=== PATIENT | female | born 1995 | race African-American/Black ===

== ENCOUNTER 2024-01-14 23:24 | Emergency (ER) | payer MEDICAID ==
[~2024-01-14] VITALS: Ht 172.7 cm; Wt 113.0 kg
[2024-01-15] MEDS: HALOPERIDOL LACTATE 5MG/ML VIAL IM ONE ×2 (00:55)
[2024-01-15] MEDS: MIDAZOLAM HCL 2 MG/2 ML VIAL IV ONE (01:36)
[2024-01-15 01:37] LABS: BASOPHILS % 0.7 % (0.0-2.0); EOSINOPHILS % 0.2 % (0.0-5.0); HEMATOCRIT. 39.2 % (36.0-48.0); HEMOGLOBIN. 12.9 g/dL (12.0-16.0); LYMPHOCYTES % 12.7 % (20.0-50.0); MEAN CORPUSCULAR HEMOGLOBIN 27.7 pg (28.0-32.0); MEAN CORPUSCULAR VOLUME 83.7 fL (81.0-99.0); MEAN PLATELET VOLUME 7.7 fl (7.4-10.4); NEUTROPHILS % 81.4 % (40.0-76.0); PLATELET 332 x1000/uL (130-400); RED BLOOD CELL COUNT 4.68 mill/uL (4.2-5.4); RED CELL DISTRIBUTION WIDTH 15.5 % (11.6-14.6); WHITE BLOOD COUNT 11.7 x1000/uL (4.5-11.0)
[2024-01-15 02:00] LABS: ALANINE AMINOTRANSFERASE 18 IU/L (10-49); ALBUMIN 5.2 g/dL (3.2-4.8); ASPARTATE AMINOTRANSFERASE 41 IU/L (<34); BILIRUBIN TOTAL 1.1 mg/dL (0.1-1.0); CALCIUM 9.4 mg/dL (8.7-10.4); CARBON DIOXIDE 17 mEq/L (21-32); CHLORIDE 104 mEq/L (98-107); CREATININE 0.9 mg/dL (0.6-1.0); ETHANOL BLOOD 85 mg/dL (<10); GLUCOSE 81 mg/dL (70-105); POTASSIUM 5.1 mEq/L (3.5-5.1); PROTEIN TOTAL 8.7 g/dL (6.0-8.3); SODIUM 137 mEq/L (136-145); UREA NITROGEN BLOOD 6 mg/dL (9-23)
[2024-01-15 02:24] LABS: HCG SCREEN NEGATIVE
[2024-01-15 04:00] VITALS: O2SAT 100
[2024-01-15] MEDS: SODIUM CHLORIDE 0.9% 500 ML IV NR (05:43)
[2024-01-15 06:48] LABS: CALCIUM 9.2 mg/dL (8.7-10.4); CARBON DIOXIDE 23 mEq/L (21-32); CHLORIDE 104 mEq/L (98-107); CREATININE 0.8 mg/dL (0.6-1.0); GLUCOSE 69 mg/dL (70-105); POTASSIUM 3.8 mEq/L (3.5-5.1); SODIUM 138 mEq/L (136-145); UREA NITROGEN BLOOD 5 mg/dL (9-23)
[2024-01-15 14:39] VITALS: BP 128/75; PULSE 68; RESP 12; TEMP 97.7
== END 2024-01-15 14:41 | disposition home or self-care (01) ==
LOC: ER 23:24 → EDBD 23:24 → ER 01-15 14:41
DX: F10.129 Alcohol abuse with intoxication, unspecified (principal); F19.90 Other psychoactive substance use, unspecified, uncomplicated; Z98.890 Other specified postprocedural states; Y90.4 Blood alcohol level of 80-99 mg/100 ml
CPT/HCPCS: 82962; 99291; 80053; 80048; 80320; 84703; 85025; 36415; 70450; 96361; 96372; 96374; J1630; J2250; Z7610; G0480

== ENCOUNTER 2024-11-08 19:30 | Emergency (ER) | payer MEDICAID ==
[~2024-11-08] VITALS: Ht 172.7 cm; Wt 109.0 kg
[2024-11-08 19:30] VITALS: O2SAT 98
[2024-11-08] MEDS: ACETAMINOPHEN 325MG TABLET PO STA (20:22)
[2024-11-08] MEDS ORDERED: IBUP-2029 MT (22:00)
[2024-11-08 22:12] VITALS: BP 134/71; PULSE 68; RESP 18; TEMP 36.78072; O2SAT 99
== END 2024-11-08 22:11 | disposition home or self-care (01) ==
LOC: ER 19:30
DX: S00.83XA Contusion of other part of head, initial encounter (principal); E11.9 Type 2 diabetes mellitus without complications; I10 Essential (primary) hypertension; Z98.890 Other specified postprocedural states; Y04.0XXA Assault by unarmed brawl or fight, initial encounter; Y93.89 Activity, other specified; Y92.89 Other specified places as the place of occurrence of the external cause; Y99.8 Other external cause status
CPT/HCPCS: 70450; 70486; 99284; Z7610 ×3